=== PATIENT | female | born 1975 | race Hispanic/Latino ===

== ENCOUNTER 2024-02-05 08:13 | Outpatient (CLI) | payer BC | END 2024-02-05 08:14 | disposition home or self-care (01) | LOC: MRI 08:13 | PROVIDERS: ATTEND Psychiatry & Neurology Sleep Medicine | DX: R27.0 Ataxia, unspecified (principal); R29.898 Other symptoms and signs involving the musculoskeletal system; M47.814 Spondylosis without myelopathy or radiculopathy, thoracic region; M50.322 Other cervical disc degeneration at C5-C6 level; M50.323 Other cervical disc degeneration at C6-C7 level; R90.89 Other abnormal findings on diagnostic imaging of central nervous system | CPT/HCPCS: 70551; 72141; 72146; 72148 ==